=== PATIENT | female | born 1985 | race Caucasian/White ===

== ENCOUNTER → 2022-06-23 11:46 | Outpatient (CLI) | payer BC, SELFPAY ==
--- NOTE | ~2022-06-23 | US_ITS ---
EXAMINATION: US OB <= 14 weeks fetus DATE: 06/23/2022 12:04 INDICATION: First trimester dating TECHNIQUE: Real-time pelvic transabdominal and transvaginal ultrasound was performed. COMPARISON: None. FINDINGS: The uterus measures 10.4 x 6.1 x 6.8 cm. There is an intrauterine gestational sac. A yolk sac is identified. heart motion is identified measuring 158 beats per minute (bpm) by M-mode Do ppler. The crown rump length measures 1.6 cm , which correlates with an estimated gestational a ge of 8 weeks and 0 day(s) (+/-) 5 day(s). The right ovary measures 4.6 x 2.8 x 3.1 cm. The left ovary measures 3.2 x 2.6 x 2.3 cm. There is nor mal vascular flow in the ovaries. There is no free fluid in the pelvis. IMPRESSION: 1. Live intrauterine with an estimated gestational age of 8 weeks and 0 day(s) (+/-) 5 day( s) and an estimated delivery date of 02/02/2023. Reviewed, dictated and finalized at location A. IMPRESSION: 1. Live intrauterine with an estimated gestational age of 8 weeks and 0 day(s) (+/-) 5 day(s) and an estimated delivery date of 02/02/2023.
== END ==
PROVIDERS: Visit Provider Obstetrics & Gynecology Gynecology
DX: Z36.87 Encounter for antenatal screening for uncertain dates (principal); Z3A.08 8 weeks gestation of pregnancy
CPT/HCPCS: 76801

== ENCOUNTER → 2022-07-10 11:17 | Outpatient (CLI) | payer BC, SELFPAY ==
--- NOTE | ~2022-07-10 | US_ITS ---
EXAMINATION: US OB <= 14 weeks fetus DATE: 07/10/2022 11:44 INDICATION: Spotting. First trimester. TECHNIQUE: Real-time transabdominal pelvic ultrasound was performed. COMPARISON: Ultrasound 06/23/2022 FINDINGS: The uterus measures 12.8 x 6.3 x 8.0 cm. There is an intrauterine gestational sac. The crown ru mp length measures 3.4 cm, which correlates with an estimated gestational age of 10 weeks and 2 day(s ) (+/-) 6 day(s). heart motion is identified measuring 175 beats per minute (bpm) by M-mode Dop pler. The ovaries are not visualized. There is no free fluid in the pelvis. IMPRESSION: 1. Single living intrauterine gestation with estimated date delivery of 02/02/2023 based on the ultra sound from 06/23/2022. Reviewed, dictated and finalized at location A. IMPRESSION: 1. Single living intrauterine gestation with estimated date delivery of 023 based on the ultrasound from 06/23/2022.
== END ==
PROVIDERS: PCP Obstetrics & Gynecology Gynecology; Visit Provider Obstetrics & Gynecology Gynecology
DX: O26.21 Pregnancy care for patient with recurrent pregnancy loss, first trimester (principal)
CPT/HCPCS: 76801

== ENCOUNTER 2023-01-27 06:35 | Inpatient (IN) | payer BC, SELFPAY ==
[2023-01-27] VITALS (109 sets, daily range): BP systolic 81–153; BP diastolic 46–129; PULSE 56–98; TEMP 36.2–36.9; O2SAT 80–100; BMI 38.9
--- NOTE | 2023-01-27 06:57 | LDADM ---
This patient, Rosa Gonzales, was admitted to Labor/Delivery/Recovery 102 on 01/27/23 at 06:35. Plans for labor, pain management and were discussed with patient. Patient/family oriented to hospital policies and general routines including ID bracelet, bed and alarms, visiting hours, pain management, procedures, bathroom and other care routines, personal items, smoking policy, room service/diet and guest tray routines, infant security routines, and visiting hours. Patient/Family are encouraged to report perceived risks to care and to ask questions if they do not understand what they are told or what they should do. See OBIX for further documentation.
[2023-01-27 07:20] LABS: Basophils Absolute Auto 0.1 K/mm3 (0.0-0.1); Basophils Percent Auto 0.8 % (0.2-1.2); Eosinophils Absolute Auto 0.2 K/mm3 (0-0.3); Eosinophils Percent Auto 1.6 % (0-4.4); Hematocrit 33.4 % (37.0-47.0); Hemoglobin 11.5 g/dL (12.0-15.0); Immature Granulocyte Absolute 0.11 K/mm3 (0.00-0.031); Immature Granulocyte Percent A 1.2 % (0-0.5); Lymphocytes Percent Auto 17.2 % (18.3-44.2); Mean Corpuscular HGB Conc 34.4 g/dl (32-36); Mean Platelet Volume 11.1 fl (7.4-10.4); Monocytes Absolute Auto 0.6 K/mm3 (0.1-0.6); Monocytes Percent Auto 6.3 % (2.6-8.5); Neutrophils Absolute Auto 6.8 K/mm3 (1.3-6.7); Neutrophils Percent Auto 72.9 % (45.5-73.1); Platelet Count Result 163 k/mm3 (150-375); Red Blood Count 3.71 M/mm3 (4.2-5.4); Red Cell Distribution Width 13.2 % (11.5-14.5); White Blood Count 9.3 K/mm3 (4.5-10.0)
[2023-01-27] MEDS: miSOPROStol 25 MCG TABLET BY MOUTH (07:40)
--- NOTE | 2023-01-27 08:22 | WPDOBADMIT ---
Obstetrics - Admit Note Admission Note: record reviewed. No pertinent additions to the history and/or any subsequent changes in the physical findings that are not consistent with the expected course of the were found. Additions to the history and/or subsequent changes in the physical findings follow. None.
[2023-01-27 10:33] LABS: Rapid Plasma Reagin Non-Reactive (NonReactive)
[2023-01-27] MEDS: OXYTOCIN 30 UNITS/NS 500 ML 30 UNITS/500 ML BAG IV CONT (12:15)
[2023-01-27] MEDS: LACTATED RINGERS 1,000 ML 125 ML IV CONT ×2 (12:15→17:10)
--- NOTE | 2023-01-27 16:54 | PM.OBPNLAB ---
Pain Control Date/time seen: 01/27/23 16:17 Pain control: tolerating well Comments: Pt standing at bedside. Reports more frequent and more painful contractions. Family present and supportive. Pelvic Exam Dilation (cm): 2 Effacement (%): 50 station: -2 Amniotic membrane status: Intact Comments: head well applied to cervix. Contractions Monitor mode: External Contraction frequency: 3 Contraction pattern: Irregular Contraction phase: Contraction Contraction intensity: Moderate Status status: Category l Assessment and Plan Pitocin rate (mU/min): 14 Assessment: induction ongoing Comments: CNM to bedside. Discussed plan of care an option for amniotomy and IUPC placement. Discussed risks, benefits, and expectations of breaking water. Patient is agreeable. Amniotomy performed and there was a small return of clear amniotic fluid. IUPC inserted easily and clear amniotic fluid returned in the catheter. Patient tolerated procedure well. Pitocin rate decreased to 6ml/hr. Plan to titrate pitocin as needed to achieve adequate contraction pattern.
--- NOTE | 2023-01-27 17:06 | PM.OBPRVD ---
OB - Delivery Note Procedure Delivery date: 01/28/23 Procedure: Events: Elective Induction of Labor Induction method: Per Misoprostol Protocol and Per Pitocin Protocol Delivery augmentation: Rupture of Membranes Delivery monitor: External FHT, External Uterine and Internal Uterine Route of delivery: Episiotomy description: None Laceration Description: Periurethral (x2) and Vaginal Delivery repair: vicryl Specimen: Yes (Placenta) Quantitative Blood Loss (ml): 550 Anesthesia type: Epidural Disposition: Floor Complications: Rubella Non-Immune during Narrative: Patient arrived for induction of labor. Sublingual Cytotec followed by Pitocin were administered. Membranes were ruptured artificially. She progressed to complete dilation and began pushing with contractions. she delivered the head in STEPH position and a loose nuchal cord was identified. She then slowly but steadily deliver the anterior followed by the posterior shoulder. The remainder of the was delivered quickly and placed on the maternal abdomen. Care was transferred to the nursery nurse. After 1 minute of life the cord was doubly clamped and cut. Cord blood and cord gases were obtained, as well as a cord segment. The placenta delivered spontaneously and was notable for marginal cord insertion. There were some vessels in the amniotic sac as well but remained near the edge of the placenta. all delivery counts correct. There was excellent hemostasis. Mother and baby skin to skin in the delivery room. Baby Date of : 01/28/23 Time of : 02:57 Weeks of gestation at delivery: 39 Infant gender: Female Weight (pounds): 8 Weight (ounces): 7 presentation: vertex position: Left Occiput Anterior Placenta delivery description: Spontaneous Cord Vessel Description: 3 Vessels, Clamped/Cut and Delayed Cord Clamping score one minute: 8 score five minutes: 9
--- NOTE | 2023-01-27 17:07 | PM.OBDSVD ---
DS: Admitting Diagnosis Discharge Date 01/29/23 Admitting Diagnosis 37 y.o. at 39 weeks 2 days Hx Anxiety Rubella Non-Immune AMA Hx uterine septum removal Hx 1st and 2nd trimester IUFDs Marginal Cord Insertion DS: Discharge Diagnosis Discharge Diagnosis (1) Mother currently breast-feeding: Code(s): Z39.1 - Encounter for care and examination of lactating mother Status: Acute (2) (normal spontaneous vaginal delivery): Code(s): O80 - Encounter for full-term uncomplicated delivery Status: Acute (3) Advanced maternal age (AMA) in : Status: Acute (4) Anxiety: Code(s): F41.9 - Anxiety disorder, unspecified Status: Acute OB - DS: Summary Hospital Course Hospital Course: Uncomplicated OB Procedures : Ultrasound OB Procedures Intrapartum: Spontaneous Vag Delivery OB Procedures: : Rubella lg Peripartum Data Infant Delivery Method: Natural Vaginal Laceration Description: Vaginal - 1st Degree and Labial Episiotomy description: None complications: none Status at Discharge Functional status at discharge: independent ambulation Overall status at discharge: patient is progressing back to baseline Time Spent with Patient Time attestation: Total time spent providing and/or coordinating discharge services: Exam Narrative: Alert and oriented. Mood is pleasant and cooperative. Urinating without difficulty. Denies passing any large clots. Perineum with minimal edema. Fundus firm and below umbilicus. Const: General: cooperative, healthy appearing, no acute distress and alert Orientation/consciousness: patient oriented x3 Limitations: no limitations Resp: Effort & Inspection: normal respiratory effort Auscultation: clear to auscultation bilaterally Cardio: Rate: regular rate GI: Inspection: normal to inspection Neuro: General: patient oriented x3 Extrem: General: normal to inspection Psych: Appearance: grossly normal Mental Status: mental status grossly normal Affect: normal affect Thought process: Normal thought process present DS: Data Data Completed and Pending Labs on day of discharge: Labs from last 24 hours 01/27/23 01/27/23 01/27/23 06:48 06:48 06:48 WBC 9.3 RBC 3.71 L Hgb 11.5 L Hct 33.4 L MCV 90.0 MCH 31.0 MCHC 34.4 RDW 13.2 Plt Count 163 MPV 11.1 H Immature Gran % (Auto) 1.2 H Neut % (Auto) 72.9 Lymph % (Auto) 17.2 L [place] % (Auto) 6.3 Eos % (Auto) 1.6 Baso % (Auto) 0.8 Lymph # (Auto) 1.60 [place] # (Auto) 0.6 Eos # (Auto) 0.2 Baso # (Auto) 0.1 Abs Immat Gran (auto) 0.11 H Absolute Neuts (auto) 6.8 H Absolute Nucleated RBC 0.0 Nucleated RBC % 0.0 RPR Non-reactive Blood Type AB Positive Antibody Screen Negative Discharge Plan Discharge Attending physician on discharge: Randa Maldonado Discharging Clinician: Josie Harper Patient Disposition: Home, Self-Care Activity: may shower Diet: as tolerated and regular Discharge Instructions: Continue taking your vitamin and any other supplements as previously directed (Examples: Iron, Vitamin D). You may take Tylenol 1000mg over the counter every 6 hours as needed for pain. Do not exceed 4000mg of Tylenol daily. You may continue using tucks pads and dermoplast spray if needed for a few more days. Patient Instructions: Antibiotic Form Stand Alone Forms: General Discharge Information Follow-up/Referrals: Josie Harper, CNM [Certified Nurse Dip Unit Operator] - (6 week exam) Discharge Medications: New docusate sodium 100 mg Capsule 100 mg PO BID PRN (Reason: Constipation) Qty: 60 0RF ibuprofen 600 mg Tablet 600 mg PO Q6H PRN (Reason: Cramping) Qty: 30 0RF Discontinued #2 Tablet 1 tablet PO HS cholecalciferol (vitamin D3) 50 mcg (2,000 unit) Tablet 50 mcg PO DAILY Label Comments: Uns
[2023-01-27] MEDS: SODIUM CHLORIDE 0.9% IV 300 ML 600 ML I-UTERINE (17:30)
--- NOTE | 2023-01-27 19:16 | WPDANESEPP ---
Anes - Eval Pre Procedure Procedure: Labor epidural Date/Time: 01/27/23 19:16 Pre Op Diagnosis: IOL Patient Data Age: 37 Gender: F Height: 1.63 m Weight: 103 kg Last Vital Signs Temp 36.3 C L 01/27/23 16:18 Pulse 69 01/27/23 19:01 BP 140/84 01/27/23 19:01 O2 Del Method Room Air 01/27/23 06:53 Allergies Allergy/AdvReac Type Severity Reaction Status Date / Time No Known Allergies Allergy Verified 01/14/23 12:02 Home Medications Medication Instructions Recorded Confirmed Type aspirin 81 mg tablet 81 mg PO DAILY 01/14/23 01/14/23 History cholecalciferol (vitamin D3) 50 50 mcg PO DAILY 01/14/23 01/14/23 History mcg (2,000 unit) tablet prenat.vits,nikolas,rib-jxpz-zxemi 1 tablet PO HS 01/14/23 01/14/23 History Laboratory Tests 01/27/23 01/27/23 01/27/23 06:48 06:48 06:48 WBC 9.3 K/mm3 K/mm3 (4.5-10.0) RBC 3.71 M/mm3 L M/mm3 (4.2-5.4) Hgb 11.5 g/dL L g/dL (12.0-15.0) Hct 33.4 % L % (37.0-47.0) MCV 90.0 fl fl (80-100) MCH 31.0 pg pg (26-34) MCHC 34.4 g/dl g/dl (32-36) RDW 13.2 % % (11.5-14.5) Plt Count 163 k/mm3 k/mm3 (150-375) MPV 11.1 fl H fl (7.4-10.4) Immature Gran % (Auto) 1.2 % H % (0-0.5) Neut % (Auto) 72.9 % % (45.5-73.1) Lymph % (Auto) 17.2 % L % (18.3-44.2) [place] % (Auto) 6.3 % % (2.6-8.5) Eos % (Auto) 1.6 % % (0-4.4) Baso % (Auto) 0.8 % % (0.2-1.2) Lymph # (Auto) 1.60 K/mm3 K/mm3 (0.9-3.2) [place] # (Auto) 0.6 K/mm3 K/mm3 (0.1-0.6) Eos # (Auto) 0.2 K/mm3 K/mm3 (0-0.3) Baso # (Auto) 0.1 K/mm3 K/mm3 (0.0-0.1) Abs Immat Gran (auto) 0.11 K/mm3 H K/mm3 (0.00-0.031) Absolute Neuts (auto) 6.8 K/mm3 H K/mm3 (1.3-6.7) Absolute Nucleated RBC 0.0 K/mm3 K/mm3 (0.0-0.012) Nucleated RBC % 0.0 % % (0.0-0.2) RPR Non-reactive (NonReactive) Blood Type AB Positive Antibody Screen Negative Patient hx anesthesia problems: none Family hx anesthesia problems: none Results Review: All pre-operative results and documents have been reviewed as part of the pre-operative evaluation. [facility] Past Medical History Medical History (Updated 01/27/23 @ 19:17 by Vita Salgado CRNA) Anxiety Obese Family History Family History Other Patient denies significant medical history Social History Social History Smoking status: Never smoker Substance use: never Lack of Transportation: No Lack of Food: Never True Current Housing: I Have Housing Concerned About Future Housing: No Difficulty Paying Gas/Electric Bills: No Difficulty Paying for Meds: No Currently Unemployed: No Education: Bachelor's Degree Difficulty w/ Childcare or Family Care: No Spiritual care concerns: No Exam Day of Procedure 01/27/23 19:16 Patient weight: obese Heart: regular rate and rhythm Lungs: normal air movement Airway: Mallampati scale Neurological: alert and oriented
[2023-01-28] VITALS (62 sets, daily range): BP systolic 106–149; BP diastolic 18–108; PULSE 62–120; RESP 16–20; TEMP 36.6–37.2; O2SAT 84–100
[2023-01-28] MEDS: ONDANSETRON INJ 4 MG/2 ML VIAL IV PUSH (00:24)
[2023-01-28] MEDS: OXYTOCIN 30 UNITS/NS 500 ML 30 UNITS/500 ML BAG 125 UNITS IV CONT (03:20)
[2023-01-28] MEDS: IBUPROFEN 600 MG TABLET PO ×2 (04:31→16:33)
[2023-01-28] MEDS: BENZOCAINE 20% AER SPR (*SP) 56 GM CAN 1 SPRAY TOPICAL (04:32)
[2023-01-28] MEDS: WITCH HAZEL 40 PADS 1 PAD TOPICAL (04:32)
--- NOTE | 2023-01-28 05:36 | PC.NURSE ---
Patient transferred to post room #290 per wheelchair from labor and delivery. Support person present. Oriented to unit, room, information board, rooming in, admission packet and security measures. Patient verbalizes understanding.
[2023-01-28] MEDS: MULTIVIT/MIN/PREN/FOL AC/IRON TABLET 1 TAB PO (09:49)
[2023-01-28] MEDS: DOCUSATE SODIUM 100 MG CAPSULE PO ×2 (09:49→16:33)
--- NOTE | 2023-01-28 16:46 | PC.NURSE ---
[id number] Introductions were made, then consulted with patient to assess needs related to . Mother led the conversation with her?plans to feed?her infant and states she is independently latching her without pain. Resources provided for inpatient and outpatient services with the feeding sheet, mom/baby guide, business card and name written on the white board. Mother voiced understanding of information and will call if there is a request for assistance.
[2023-01-29] MEDS: IBUPROFEN 600 MG TABLET PO (03:56)
[2023-01-29 05:05] LABS: Hematocrit 29.1 % (37.0-47.0); Hemoglobin 9.6 g/dL (12.0-15.0)
--- NOTE | 2023-01-29 08:08 | PM.OBPNVD ---
OB - PN: Subj Subjective Date/time seen: 01/29/23 0745 Interval history: Rosa is doing very well. Ambulating and voiding without difficulty. Bonding with infant. going well. Desires DC home today. Patient comments: no complaints and pain well controlled baby status: nursing well feeding status: exclusively breast feeding OB - PN: Obj Data Labs 01/29/23 03:54 Labs: Laboratory Results - last 24 hr 01/29/23 03:54 Hgb 9.6 L Hct 29.1 L OB - PN A/P Plan day: 1 Plan: discharge home Time Spent With Patient Time: Total time spent is greater than 50% in coordination of care (as documented) at patient's floor/unit and/or counseling patient: Review of Systems Review of Systems: All systems reviewed & are unremarkable except as noted in HPI and below Exam Narrative: Alert and oriented. Mood is pleasant and cooperative. Urinating without difficulty. Denies passing any large clots. Perineum with minimal edema. Fundus firm and below umbilicus. Const: General: cooperative, healthy appearing, no acute distress and alert Orientation/consciousness: patient oriented x3 Limitations: no limitations Resp: Effort & Inspection: normal respiratory effort Auscultation: clear to auscultation bilaterally Cardio: Rate: regular rate GI: Inspection: normal to inspection Neuro: General: patient oriented x3 Extrem: General: normal to inspection Psych: Appearance: grossly normal Mental Status: mental status grossly normal Affect: normal affect Thought process: Normal thought process present
[2023-01-29 08:25] VITALS: BP 117/48; PULSE 72; RESP 18; TEMP 36.4; O2SAT 100
[2023-01-29] MEDS: POLYSACCHARIDE IRON COMPLEX 150 MG CAPSULE PO (08:33)
[2023-01-29] MEDS: MEASLES,MUMPS,RUBELLA VACCINE 0.5 ML VIAL SUB-Q (08:33)
[2023-01-29] MEDS: MULTIVIT/MIN/PREN/FOL AC/IRON TABLET 1 TAB PO (08:33)
[2023-01-29] MEDS: DOCUSATE SODIUM 100 MG CAPSULE PO (08:33)
--- NOTE | 2023-01-29 09:47 | PC.NURSE ---
Patient viewed the discharge video Mother & Baby Care, The First Two Weeks . Patient was given the opportunity and encouraged to ask questions. Patient verbalized understanding of information shared and has been given the mother/baby guide for home reference.
--- NOTE | 2023-01-29 10:06 | WPDANLDPN2 ---
Anes-Prog Note L&D Date/Time: 01/29/23 10:06 Comfortable throughout: labor and delivery Neuraxial method: epidural Epidural/Spinal procedure site: clean & non-tender Neuro status: Neuro function grossly intact. Cardiovascular status: normal Respiratory status: normal Airway patency: baseline Mental status: baseline Post-Op hydration status: normal Vital Signs: Last Vital Signs Temp 97.5 F L 01/29/23 08:25 Pulse 72 01/29/23 08:25 Resp 18 01/29/23 08:25 BP 117/48 L 01/29/23 08:25 Pulse Ox 100 01/29/23 08:25 O2 Del Method Room Air 01/27/23 06:53 Pain score (VAS): 0 I/O: Intake & Output 01/28/23 01/29/23 01/29/23 23:59 07:59 15:59 Intake Total 500 Balance 500 Post-procedural complaints: none Patient feedback: Patient satisfied with anesthetic care.
--- NOTE | 2023-01-29 13:23 | PC.NURSE ---
This morning the Primary RN reported that mother is independently and declines services today before she goes home.
[2023-01-30 11:26] VITALS: BP 118/62; PULSE 87; RESP 18; TEMP 37.3; O2SAT 98
== END 2023-01-29 10:50 | disposition home or self-care (01) | DRG 807 ==
LOC: ANHLDR 17:10 → ANHOB2 01-29 10:00 → ANHLDR 02-01 10:42 → ANHOB2 02-01 10:42
PROVIDERS: Admitting Provider Obstetrics & Gynecology Gynecology; Visit Provider Advanced Practice Midwife
DX: O69.81X0 Labor and delivery complicated by cord around neck, without compression, not applicable or unspecified (principal); Z37.0 Single live birth; O71.82 Other specified trauma to perineum and vulva; Z3A.39 39 weeks gestation of pregnancy; O43.123 Velamentous insertion of umbilical cord, third trimester
CPT/HCPCS: 36415; 85014; 85018; 85025; 86592; 86850; 86900; 86901; 88307; 90710; A9270; J2405; J2590; J2795; J7030; J7120